=== PATIENT | female | born 1965 | race Two or more races ===

== ENCOUNTER 2023-03-26 09:00 | Inpatient (IN) | payer OTHER ==
[~2023-03-26] VITALS: Ht 157.5 cm; Wt 121.6 kg
[2023-03-26] MEDS ORDERED: TIROSINT100 MCG PO (14:17)
[2023-03-26] MEDS ORDERED: MOUNJARO2.5 MG/0.5 (14:17)
[2023-03-26] MEDS ORDERED: AMLODIPINE-OLM1 EACH PO (14:18)
[2023-03-26] MEDS ORDERED: LIPOFEN50 MG PO (14:18)
[2023-03-26] MEDS ORDERED: RESTORIL15 MG PO (14:19)
[2023-03-26] MEDS ORDERED: ATIVAN0.5 M1 PO (14:19)
[2023-03-26] MEDS ORDERED: [UNRECOGNIZED DRUG - OTHER] PO (14:20)
[2023-04-01 15:46] LABS: ABG PH 7.319 (7.35-7.45); ABG PO2 155.5 mmHg (80-100); ABG pCO2 44.6 mmHg (35-45); BASE EXCESS -3.8 mmol/l; BICARBONATE 22.4 mmol/l (23-25); SaO2 99.1 %; Tco2 23.8 mmol/l; allen test SATISFACTORY; puncture site RADIAL RIGHT
[2023-04-01 15:47] LABS: o2 40 %
[2023-04-01 15:55] LABS: HEMATOCRIT 34.2 % (36.0-45.00); HEMOGLOBIN 11.6 g/dL (12.0-15.00); MEAN CELL VOLUME 88.8 fL (80.00-100.00); MEAN CORPUSCULAR HGB CONC 33.8 g/dl (32.0-36.0); PLATELET COUNT 275 K/uL (150-450); RED BLOOD COUNT 3.85 M/uL (4.00-6.00); RED CELL DISTRIBUTION WIDTH 13.2 % (11.5-14.5)
[2023-04-01 19:45] LABS: ABG PO2 68.1 mmHg (80-100); ABG pCO2 45.3 mmHg (35-45); BASE EXCESS -0.7 mmol/l; SaO2 92.4 %; Tco2 26.4 mmol/l; allen test SATISFACTORY; puncture site RADIAL RIGHT
[2023-04-01 19:46] LABS: o2 21 %
[2023-04-02 07:07] LABS: HEMATOCRIT 33.2 % (36.0-45.00); HEMOGLOBIN 11.1 g/dL (12.0-15.00); MEAN CELL VOLUME 89.3 fL (80.00-100.00); MEAN CORPUSCULAR HEMOGLOBIN 29.9 pg (27.00-32.0); MEAN CORPUSCULAR HGB CONC 33.5 g/dl (32.0-36.0); PLATELET COUNT 268 K/uL (150-450); RED BLOOD COUNT 3.71 M/uL (4.00-6.00); RED CELL DISTRIBUTION WIDTH 13.2 % (11.5-14.5)
[2023-04-02 07:47] LABS: ALBUMIN 2.9 gm/dL (3.4-5.0); CALCIUM 8.1 mg/dL (8.5-10.1); CREATININE SERUM 0.77 mg/dL (0.55-1.02); GFR 76.73; MAGNESIUM 1.6 mg/dL (1.8-2.4); PHOSPHOROUS 2.7 mg/dL (2.5-4.9); POTASSIUM 3.31 mEq/L (3.5-5.1)
[2023-04-03 06:57] LABS: HEMOGLOBIN 10.4 g/dL (12.0-15.00); MEAN CORPUSCULAR HEMOGLOBIN 30.6 pg (27.00-32.0); MEAN CORPUSCULAR HGB CONC 34.8 g/dl (32.0-36.0); PLATELET COUNT 236 K/uL (150-450); RED BLOOD COUNT 3.41 M/uL (4.00-6.00); RED CELL DISTRIBUTION WIDTH 13.3 % (11.5-14.5)
[2023-04-03 07:27] LABS: CALCIUM 7.9 mg/dL (8.5-10.1); CREATININE SERUM 0.73 mg/dL (0.55-1.02); GFR 81.6; MAGNESIUM 1.7 mg/dL (1.8-2.4); POTASSIUM 3.31 mEq/L (3.5-5.1)
[2023-04-03 08:03] LABS: PHOSPHOROUS 1.6 mg/dL (2.5-4.9)
== END 2023-04-03 12:24 | disposition home or self-care (01) | DRG 330 ==
LOC: O/R 04-01 05:08 → SURH 04-01 05:08
PROVIDERS: Internal Medicine Geriatric Medicine; ADMIT Colon & Rectal Surgery; ATTEND Colon & Rectal Surgery
PROC: 0DBP4ZZ Excision of Rectum, Percutaneous Endoscopic Approach (ICD-10-PCS; 2023-04-01)
PROC: 0DJD8ZZ Inspection of Lower Intestinal Tract, Via Natural or Artificial Opening Endoscopic (ICD-10-PCS; 2023-04-01)
PROC: 3E0F7GC Introduction of Other Therapeutic Substance into Respiratory Tract, Via Natural or Artificial Opening (ICD-10-PCS; 2023-04-01)
PROC: 4A12X4Z Monitoring of Cardiac Electrical Activity, External Approach (ICD-10-PCS; 2023-04-01)
PROC: 0DTN4ZZ Resection of Sigmoid Colon, Percutaneous Endoscopic Approach (ICD-10-PCS; principal; 2023-04-01 07:00)
DX: K57.32 Diverticulitis of large intestine without perforation or abscess without bleeding (principal); K92.1 Melena; I11.9 Hypertensive heart disease without heart failure; J44.9 Chronic obstructive pulmonary disease, unspecified; F17.200 Nicotine dependence, unspecified, uncomplicated; G47.30 Sleep apnea, unspecified